=== PATIENT | female | born 1935 | race African-American/Black ===

== ENCOUNTER 2022-10-29 07:19 | Inpatient (IN) | payer BC, MEDICARE ==
[~2022-10-29] VITALS: Ht 167.6 cm; Wt 83.0 kg
[2022-10-29 08:22] LABS: BASOPHILS % 0.7 % (0.0-2.0); HEMATOCRIT. 37.5 % (36.0-48.0); HEMOGLOBIN. 12.7 g/dL (12.0-16.0); LYMPHOCYTES % 23.1 % (20.0-50.0); MEAN CORPUSCULAR VOLUME 88.3 fL (81.0-99.0); MONOCYTES % 7.5 % (2.0-8.0); NEUTROPHILS % 65.7 % (40.0-76.0); PLATELET 237 x1000/uL (130-400); RED BLOOD CELL COUNT 4.24 mill/uL (4.2-5.4); RED CELL DISTRIBUTION WIDTH 13.4 % (11.6-14.6)
[2022-10-29 08:24] LABS: CHLORIDE 102 mEq/L (98-107)
[2022-10-29] MEDS ORDERED: INSULIN REGULAR (HUMULIN R) 300UNITS/3ML VIAL SUBCUT ONE (09:00)
[2022-10-29] MEDS ORDERED: FUROSEMIDE 40MG/4ML VIAL IVP ONE (10:30)
[2022-10-29] MEDS ORDERED: GUAIFENESIN 200MG/10ML SUGAR FREE UDC PO PRN (11:15)
[2022-10-29] MEDS ORDERED: ONDANSETRON HCL 4MG/2ML INJ IV PRN (11:15)
[2022-10-29] MEDS ORDERED: DOCUSATE SODIUM 100MG CAPSULE PO PRN (11:15)
[2022-10-29] MEDS ORDERED: KETOROLAC 15MG/ML VIAL IV PRN (11:15)
[2022-10-29] MEDS ORDERED: CLONIDINE 0.1MG TABLET PO PRN (11:15)
[2022-10-29] MEDS ORDERED: NITROGLYCERIN 0.4MG TABLET SL SL PRN (11:15)
[2022-10-29] MEDS ORDERED: ACETAMINOPHEN 325MG TABLET PO PRN ×2 (11:15)
[2022-10-29] MEDS ORDERED: IPRATROPIUM/ALBUTEROL 0.5-3(2.5)MG/3ML NEB NEB PRN (11:15)
[2022-10-29] MEDS ORDERED: MAGNESIUM/ALUMINUM HYDROXIDE/SIMETHICONE 30ML UDC PO PRN (11:15)
[2022-10-29] MEDS ORDERED: DEXTROSE 50% WATER 50ML SYRINGE IV PRN (11:15)
[2022-10-29] MEDS ORDERED: ENOXAPARIN 40MG/0.4ML SYR SUBCUT SCH (12:00)
[2022-10-29 12:03] LABS: T4 FREE 1.19 ng/dL (0.76-1.46)
[2022-10-29 12:20] VITALS: BP 136/72; PULSE 95; RESP 17; TEMP 97.5
[2022-10-29 12:29] LABS: VITAMIN B12 SERUM 1099 pg/mL (211-911)
[2022-10-29 12:35] LABS: FOLIC ACID (FOLATE) SERUM > 20.00 ng/mL (>5.38)
[2022-10-29 12:41] VITALS: BP 136/72; PULSE 95; RESP 17; TEMP 97.5
[2022-10-29] MEDS ORDERED: METF-414 PO (12:57)
[2022-10-29] MEDS: BLOOD SUGAR DIAGNOSTIC STRIP TEST SCH ×3 (13:09→21:00)
[2022-10-29] MEDS: INSULIN LISPRO 100 UNITS/ML SUBCUT SCH ×4 (13:28→17:15)
[2022-10-29 15:35] VITALS: BP 128/70; PULSE 81; RESP 18; TEMP 97
[2022-10-29 20:00] VITALS: BP 145/83; PULSE 89; RESP 18; TEMP 99.5
[2022-10-29] MEDS ORDERED: FUROSEMIDE 40MG/4ML VIAL IVP SCH (21:00)
[2022-10-29] MEDS ORDERED: ZOLPIDEM TARTRATE 5MG TABLET PO PRN (21:00)
[2022-10-29] MEDS: INSULIN GLARGINE 100 UNITS/ML SUBCUT SCH (22:00)
[2022-10-29] MEDS: FAMOTIDINE 20MG TABLET PO SCH (22:23)
[2022-10-30] VITALS: BP 113/69; PULSE 81; RESP 17; TEMP 98.1
[2022-10-30] MEDS: INSULIN LISPRO 100 UNITS/ML SUBCUT SCH ×8 (00:09→21:28)
[2022-10-30 01:02] LABS: CREATINE KINASE MB FRACTION 2.6 ng/mL (0.5-3.6)
[2022-10-30 04:00] VITALS: BP 106/59; PULSE 80; RESP 17; TEMP 98.6
[2022-10-30 05:18] LABS: BASOPHILS % 0.5 % (0.0-2.0); EOSINOPHILS % 3.5 % (0.0-5.0); HEMATOCRIT. 34.8 % (36.0-48.0); HEMOGLOBIN. 11.6 g/dL (12.0-16.0); LYMPHOCYTES % 29.7 % (20.0-50.0); MEAN CORPUSCULAR VOLUME 87.4 fL (81.0-99.0); MEAN PLATELET VOLUME 8.1 fl (7.4-10.4); MONOCYTES % 7.7 % (2.0-8.0); NEUTROPHILS % 58.6 % (40.0-76.0); PLATELET 219 x1000/uL (130-400); RED BLOOD CELL COUNT 3.98 mill/uL (4.2-5.4); RED CELL DISTRIBUTION WIDTH 13.3 % (11.6-14.6)
[2022-10-30 06:14] LABS: CHLORIDE 106 mEq/L (98-107)
[2022-10-30 06:21] LABS: PHOSPHORUS 4.1 mg/dL (2.5-4.9)
[2022-10-30] MEDS: BLOOD SUGAR DIAGNOSTIC STRIP TEST SCH ×4 (07:30→21:28)
[2022-10-30 08:00] VITALS: BP 135/59; PULSE 90; RESP 18; TEMP 98.7
[2022-10-30 08:15] LABS: CLARITY URINE CLEAR (CLEAR); COLOR URINE YELLOW (YELLOW); KETONES URINE NEGATIVE (NEGATIVE); LEUKOCYTE ESTERASE URINE NEGATIVE (NEGATIVE); NITRITE URINE POSITIVE (NEGATIVE); OCCULT BLOOD URINE NEGATIVE (NEGATIVE); PROTEIN URINE NEGATIVE (NEGATIVE); SPECIFIC GRAVITY URINE 1.019 (1.005-1.030); UROBILINOGEN URINE 0.2 E.U./dL (0.2-1.0)
[2022-10-30 08:45] LABS: *AMPHETAMINES SCREEN URINE NEGATIVE (NEGATIVE); *BARBITURATES SCREEN URINE NEGATIVE (NEGATIVE); *BENZODIAZEPINES SCREEN URINE NEGATIVE (NEGATIVE); *COCAINE SCREEN URINE NEGATIVE (NEGATIVE); CANNABINOID URINE SCREEN NEGATIVE (NEGATIVE); METHADONE URINE SCREEN NEGATIVE (NEGATIVE); OPIATES URINE SCREEN NEGATIVE (NEGATIVE); PHENCYCLIDINE URINE SCREEN NEGATIVE (NEGATIVE)
[2022-10-30] MEDS ORDERED: LOSARTAN POTASSIUM 50 MG TABLET PO SCH (09:00)
[2022-10-30] MEDS ORDERED: ASPIRIN 325MG EC TABLET PO SCH ×2 (09:00)
[2022-10-30] MEDS: FUROSEMIDE 40MG/4ML VIAL IVP SCH (09:34)
[2022-10-30] MEDS: FAMOTIDINE 20MG TABLET PO SCH ×2 (09:35→21:24)
[2022-10-30] MEDS: ENOXAPARIN 80MG/0.8ML SYR SUBCUT SCH ×2 (09:35→21:25)
[2022-10-30] MEDS ORDERED: IOHEXOL-350 100 ML BOTTLE ONE (09:38)
[2022-10-30] MEDS: SPIRONOLACTONE 25MG TABLET PO SCH ×3 (09:49→21:40)
[2022-10-30] MEDS: ASPIRIN 81MG EC TABLET PO SCH (09:49)
[2022-10-30 12:00] VITALS: BP 140/69; PULSE 70; RESP 20; TEMP 97.8
[2022-10-30 16:00] VITALS: BP 110/58; PULSE 80; RESP 20; TEMP 98.2
[2022-10-30] MEDS: APIXABAN 5 MG TABLET PO SCH (17:47)
[2022-10-30 20:00] VITALS: BP 123/55; PULSE 82; RESP 20; TEMP 99
[2022-10-30] MEDS: INSULIN GLARGINE 100 UNITS/ML SUBCUT SCH (21:27)
[2022-10-31] VITALS: BP 121/56; PULSE 79; RESP 16; TEMP 99.1
[2022-10-31 04:00] VITALS: BP 130/64; PULSE 78; RESP 18; TEMP 98.1
[2022-10-31] MEDS: BLOOD SUGAR DIAGNOSTIC STRIP TEST SCH ×4 (06:27→21:22)
[2022-10-31] MEDS: INSULIN LISPRO 100 UNITS/ML SUBCUT SCH ×7 (06:37→21:22)
[2022-10-31 08:00] VITALS: BP 107/53; PULSE 75; RESP 20; TEMP 98
[2022-10-31] MEDS: APIXABAN 5 MG TABLET PO SCH ×2 (09:33→18:43)
[2022-10-31] MEDS: ASPIRIN 81MG EC TABLET PO SCH (09:34)
[2022-10-31] MEDS: SPIRONOLACTONE 25MG TABLET PO SCH (09:34)
[2022-10-31] MEDS: FUROSEMIDE 40MG/4ML VIAL IVP SCH (09:34)
[2022-10-31 12:00] VITALS: BP 121/62; PULSE 90; RESP 20; TEMP 98.2
[2022-10-31 16:00] VITALS: BP 110/56; PULSE 79; RESP 20; TEMP 97.6
[2022-10-31 20:00] VITALS: BP 133/55; PULSE 84; RESP 20; TEMP 99
[2022-10-31] MEDS ORDERED: FAMOTIDINE 20MG TABLET PO SCH (21:00)
[2022-10-31] MEDS: INSULIN GLARGINE 100 UNITS/ML SUBCUT SCH (21:21)
[2022-11-01] VITALS: BP 123/60; PULSE 78; RESP 18; TEMP 98
[2022-11-01 04:00] VITALS: BP 125/55; PULSE 81; RESP 18; TEMP 98.1
[2022-11-01] MEDS: INSULIN LISPRO 100 UNITS/ML SUBCUT SCH ×4 (06:56→12:31)
[2022-11-01] MEDS: BLOOD SUGAR DIAGNOSTIC STRIP TEST SCH ×2 (06:56→11:57)
[2022-11-01 08:00] VITALS: BP 133/69; PULSE 74; RESP 20; TEMP 96.9
[2022-11-01] MEDS ORDERED: FUROSEMIDE 40MG TABLET PO SCH (09:00)
[2022-11-01] MEDS ORDERED: SPIRONOLACTONE 25MG TABLET PO SCH (09:00)
[2022-11-01] MEDS: ASPIRIN 81MG EC TABLET PO SCH (09:03)
[2022-11-01] MEDS: APIXABAN 5 MG TABLET PO SCH (09:04)
[2022-11-01] MEDS ORDERED: AMLO5TAB4 MT (09:34)
[2022-11-01] MEDS ORDERED: APIX5TAB PO (09:34)
[2022-11-01] MEDS ORDERED: LANTUSUD SUBCUT (09:34)
[2022-11-01] MEDS ORDERED: ASPI-1406 PO (09:34)
[2022-11-01] MEDS ORDERED: INSLIS SUBCUT (09:34)
[2022-11-01] MEDS ORDERED: FAMO20TA8 PO (09:34)
[2022-11-01 12:00] VITALS: BP 125/59; PULSE 77; RESP 20; TEMP 96.6
[2022-11-01 12:02] VITALS: BP 125/59; PULSE 77; TEMP 96.6; O2SAT 98
[2022-11-06] MEDS ORDERED: APIXABAN 5 MG TABLET PO SCH (17:00)
== END 2022-11-01 14:10 | disposition home health service (06) | DRG 175 ==
LOC: ER 07:19 → 8WST 10:27 → EDBEDREQTM 10:39 → EDBEDREQ 10:39 → 8WST 11-01 08:28
PROVIDERS: ADMIT Internal Medicine; ATTEND Internal Medicine
DX: I26.02 Saddle embolus of pulmonary artery with acute cor pulmonale (principal); I50.31 Acute diastolic (congestive) heart failure; E44.0 Moderate protein-calorie malnutrition; E87.1 Hypo-osmolality and hyponatremia; I11.0 Hypertensive heart disease with heart failure; Z20.822 Contact with and (suspected) exposure to COVID-19; E87.5 Hyperkalemia; E11.9 Type 2 diabetes mellitus without complications; R79.89 Other specified abnormal findings of blood chemistry; Z96.649 Presence of unspecified artificial hip joint; Z79.01 Long term (current) use of anticoagulants; Z68.29 Body mass index [BMI] 29.0-29.9, adult
CPT/HCPCS: 36415; 71045; 71275; 80053; 80061; 80305; 81003; 82550; 82553; 82607; 82746; 82962; 83036; 83540; 83550; 83735; 83880; 83930; 84100; 84439; 84443; 84484; 85025; 85379; 87426; 93005; 93306; 93970; 97161; 97165; 99285; J1650; J1815; J1940; Q9967